=== PATIENT | female | born 1930 | race Caucasian/White ===

== ENCOUNTER 2018-09-08 04:25 | Emergency (ER) | payer BC ==
[2018-09-08 04:41] VITALS: BMI 20.5
--- NOTE | 2018-09-08 05:06 | PDOC ---
Attending Attestation - Resident Resident Name: FordJigar - ED Attending Attestation I have performed the following: I have examined & evaluated the patient, The case was reviewed & discussed with the resident, I agree w/resident's findings & plan - HPI HPI: 09/08/18 05:43 Pt comes with left scientology sensitivity and pain in her left eye. She had a tooth extraction in the left maxilla and right mandible. She has no fever and no chills. No headache at this time and no vision loss. - Physicial Exam PE: 09/08/18 05:50 Agree with resident exam - Medical Decision Making 09/08/18 05:[address] sinuses Pt will have labs/sed rate to r/o temp arteritis Pt is tachy and htn she will be treated with a dose of metoprolol 09/08/18 06:29 Patient Name: ARELY RASMUSSEN THIS IS A PRELIMINARY REPORT FROM [facility] DATE OF SERVICE: 2018-09-08 05:52:07 IMAGES: 140 EXAM: HEAD CT WITHOUT CONTRAST HISTORY: Headache COMPARISON: None. FINDINGS: Brain parenchyma is normal in attenuation with no mass or hematoma. There is no midline shift. López and white matter differentiation is normal. Ventricles are normal. Sulci and extra-axial CSF spaces are normal. Intracranial vascular structures are normal in attenuation. There is no calvarial fracture. Paranasal sinuses are normally aerated. IMPRESSION: Normal head 09/08/18 06:30 Sed rate and labs pending. CT head and sinuses normal. Vitals are improved; Pt will be signed out to the day team
--- NOTE | 2018-09-08 05:29 | PDOC ---
History of Present Illness - General Chief Complaint: Injury Stated Complaint: HEAD INJURY Time Seen by Provider: 09/08/18 05:06 History Source: Patient Exam Limitations: No Limitations - History of Present Illness Initial Comments: 09/08/18 05:50 88 yo F with hx of glaucoma in left eye (cataract surgery left eye 2011) presents to the emergency department with left eye pain that occurred at 11 pm last night. Per the patient, she stated yesterday morning she had an episode of sharp left eye pain "like I wanted to pass out" that lasted for approximately 30 seconds with radiation to the left anglican and temporal region of head. She had the same episode at 11 pm. Prior, during, and after these episodes, she denies visual loss. She states she hit her head while cleaning her car against the roof on the [place]. She denies other trauma since then. Per the patient, she had a dental extraction of her left upper molar tooth on Jul 30. Denies the following: fever, chills, nausea, vomiting, chest pain, SOB, abdominal pain, dysuria, hematuria, visual changes, lightheadedness, dizziness, FND, dysuria, hematuria, diarrhea, and hematochezia. Pmhx: Refer to above Shx: Right hip replacement Meds: lantoprost PMD: Dr. Resendiz Social: Denies tobacco, alcohol, and drug use. Past History - Past Medical History Allergies/Adverse Reactions: Allergies Allergy/AdvReac Type Severity Reaction Status Date / Time No Known Allergies Allergy Verified 09/08/18 04:40 Home Medications: Ambulatory Orders Loratadine/Pseudoephedrine Sul [Claritin-D 24 Hour Tablet] 1 tab PO DAILY Anemia: No Asthma: No Cancer: No Cardiac Disorders: No CVA: No COPD: No CHF: No Dementia: No Diabetes: No GI Disorders: No Disorders: No HTN: No Hypercholesterolemia: No Liver Disease: No Seizures: No Thyroid Disease: No - Surgical History Abdominal Surgery: No Appendectomy: No Cardiac Surgery: No Cholecystectomy: No Lung Surgery: No Neurologic Surgery: No Orthopedic Surgery: Yes (Right Hip Replacement 1994) - Suicide/Smoking/Psychosocial Hx Smoking History: Never smoked Have you smoked in the past 12 months: No Information on smoking cessation initiated: No Hx Alcohol Use: No Drug/Substance Use Hx: No Substance Use Type: None Hx Substance Use Treatment: No Review of Systems - Review of Systems Able to Perform ROS?: Yes Is the patient limited Pashto proficient: No Constitutional: No: Chills, Diaphoresis, Fever HEENTM: No: Eye Pain, Recent change in vision, Nose Pain, Throat Pain, Mouth Pain Respiratory: No: Cough, Shortness of Breath, SOB with Exertion, Hemoptysis Cardiac (ROS): No: Chest Pain, Lightheadedness, Palpitations, Syncope, Chest Tightness ABD/GI: No: Constipated, Diarrhea, Nausea, Poor Appetite, Rectal Bleeding, Vomiting, Tarry Stools : No: Burning, Dysuria, Flank Pain, Hematuria Musculoskeletal: No: Back Pain, Neck Pain Integumentary: No: Bruising, Lesions, Rash Neurological: No: Headache, Numbness, Tingling, Weakness, Ataxia Psychiatric: No: Stressors Endocrine: No: Unexplained Weight Gain Hematologic/Lymphatic: No: Anemia *Physical Exam - Vital Signs Last Vital Signs Temp Pulse Resp BP Pulse Ox 97.6 F 114 H 22 H 162/102 H 98 09/08/18 04:40 09/08/18 04:40 09/08/18 04:40 09/08/18 04:40 09/08/18 04:40 - Physical Exam General Appearance: Yes: Nourished, Appropriately Dressed HEENT: positive: EOMI, TRACY, Normal ENT Inspection, Normal Voice, Symmetrical, TMs Normal, Pharynx Normal. negative: Scleral Icterus (R), Scleral Icterus (L) , Muffled/Hoarse voice, Pharyngeal Erythema, Tonsillar Exudate, Tonsillar Erythema, Nasal Congestion Neck: positive: Trachea midline. negative: Lymphadenopathy (R), Lymphadenopathy (L) Respiratory/Chest: positive: Lungs Clear, Normal Breath Sounds. negative: Chest Tender, Respiratory Distress, Accessory Muscle Use, Crackles, Rales, Rhonchi, Stridor, Wheezing Cardiovascular: positive: Regular Rhythm, Regular Rate, S1, S2. negative: Systolic Murmur Gastrointestinal/Abdominal: positive: Normal Bowel Sounds. negative: Tender, Protuberent, Distended Lymphatic: negative: Adenopathy Musculoskeletal: positive: Normal Inspection. negative: CVA Tenderness, Vertebral Tenderness Extremity: positive: Normal Capillary Refill, Normal Inspection, Normal Range of Motion. negative: Tender Integumentary: positive: Normal Color, Dry, Warm Neurologic: positive: pcb designer II-XII NML intact, Fully Oriented, Alert, Normal Mood/ Affect, Normal Response, Motor Strength 5/5. negative: Facial Droop, Sensory Deficit ED Treatment Course - LABORATORY CBC & Chemistry Diagram: 09/08/18 06:16 09/08/18 06:16 Medical Decision Making - Medical Decision Making 09/08/18 09:05 88 yo F with hx of glaucoma in left eye (cataract surgery left eye 2011) presents to the emergency department with left eye pain that occurred at 11 pm last night. Initial vitals: Laboratory Tests 09/08/18 09/08/18 09/08/18 05:51 06:16 06:16 WBC 8.1 RBC 5.07 Hgb 14.5 Hct 43.3 MCV 85.3 MCH 28.5 MCHC 33.4 RDW 13.6 Plt Count 322 MPV 7.0 L Absolute Neuts (auto) 5.8 Neutrophils % 70.5 Lymphocytes % 19.3 Monocytes % 7.7 Eosinophils % 2.0 Basophils % 0.5 Nucleated RBC % 0 ESR 4 Sodium 136 Potassium 5.4 H Chloride 101 Carbon Dioxide 29 Anion Gap 6 L BUN 22 H Creatinine 0.6 Creat Clearance w eGFR > 60 Random Glucose 113 H Calcium 9.1 Total Bilirubin 0.5 AST 18 ALT 25 Alkaline Phosphatase 67 Total Protein 6.8 Albumin 3.8 ddx: trigeminal neuralgia, temporal arteritis, cluster headache, dental abscess , otitis media, sinusitis. cbc, cmp, esr, head ct/ct sinuses Patient was signed out to Dr. Marino *DC/Admit/Observation/Transfer Diagnosis at time of Disposition: Headache Qualifiers: Headache type: unspecified Headache chronicity pattern: unspecified pattern Intractability: not intractable Qualified Code(s): R51 - Headache - Discharge Dispostion Disposition: HOME Condition at time of disposition: Good - Referrals Referrals: Phillip Ruiz MD [Staff Physician] - Richmond Resendiz MD [Primary Care Provider] - Charley Perla MD [Staff Physician] - - Patient Instructions Printed Discharge Instructions: Cluster Headache, DI for Headache Additional Instructions: Your workup is unremarkable. Please follow up with your doctor. Call to make an appointment with a neurologist and eye doctor. If you have worsening pain, please return to the ER. - Post Discharge Activity
[2018-09-08] MEDS ORDERED: METOPROLOL TARTRATE 50 MG TABLET (FP) PO ONE (05:33)
[2018-09-08] MEDS ORDERED: METOPROLOL TARTRATE 50 MG TABLET (FP) ONE (05:37)
[2018-09-08 06:26] LABS: BASO % 0.5 % (0-2.0); HEMATOCRIT 43.3 % (32.4-45.2); HEMOGLOBIN 14.5 GM/dL (10.7-15.3); LYMPH % 19.3 % (8-40); MCH 28.5 pg (25.7-33.7); MCHC 33.4 g/dl (32.0-36.0); MEAN CELL VOLUME 85.3 fl (80-96); MONO % 7.7 % (3.8-10.2); NEUT % 70.5 % (42.8-82.8); PLATELET COUNT 322 K/MM3 (134-434); RBC 5.07 M/mm3 (3.60-5.2); RDW 13.6 % (11.6-15.6); WHITE BLOOD COUNT 8.1 K/mm3 (4.0-10.0)
[2018-09-08 06:46] LABS: ALBUMIN 3.8 g/dl (3.4-5.0); ALK PHOS 67 U/L (45-117); ANION GAP 6 MMOL/L (8-16); BILIRUBIN,TOTAL 0.5 mg/dL (0.2-1); BLOOD UREA NITROGEN 22 mg/dL (7-18); CALCIUM 9.1 mg/dL (8.5-10.1); CHLORIDE 101 mmol/L (98-107); CO2 29 mmol/L (21-32); CREATININE 0.6 mg/dL (0.55-1.3); GLUCOSE,RANDOM 113 mg/dL (74-106); POTASSIUM 5.4 mmol/L (3.5-5.1); SGOT/AST 18 U/L (15-37); SGPT/ALT 25 U/L (13-61); SODIUM 136 mmol/L (136-145); TOT PROT 6.8 g/dl (6.4-8.2)
[2018-09-08] MEDS ORDERED: SODIUM POLYSTYRENE SULFONATE 15 GM/60 ML BOTTLE ONE (07:20)
[2018-09-08] MEDS: SODIUM POLYSTYRENE SULFONATE 15 GM/60 ML BOTTLE PO ONE ×2 (07:21→07:48)
--- NOTE | 2018-09-08 07:27 | PDOC ---
*Physical Exam - Vital Signs Last Vital Signs Temp Pulse Resp BP Pulse Ox 97.6 F 114 H 22 H 162/102 H 98 09/08/18 04:40 09/08/18 04:40 09/08/18 04:40 09/08/18 04:40 09/08/18 04:40 ED Treatment Course - LABORATORY CBC & Chemistry Diagram: 09/08/18 06:16 09/08/18 06:16 - ADDITIONAL ORDERS Additional order review: Laboratory Results 09/08/18 06:16 Sodium 136 Potassium 5.4 H Chloride 101 Carbon Dioxide 29 Anion Gap 6 L BUN 22 H Creatinine 0.6 Creat Clearance w eGFR > 60 Random Glucose 113 H Calcium 9.1 Total Bilirubin 0.5 AST 18 ALT 25 Alkaline Phosphatase 67 Total Protein 6.8 Albumin 3.8 09/08/18 06:16 RBC 5.07 MCV 85.3 MCHC 33.4 RDW 13.6 MPV 7.0 L Neutrophils % 70.5 Lymphocytes % 19.3 Monocytes % 7.7 Eosinophils % 2.0 Basophils % 0.5 - Medications Given in the ED: ED Medications Discontinued Medications Generic Name Dose Route Start Last Admin Trade Name Freq PRN Reason Stop Dose Admin Metoprolol Tartrate 50 mg 09/08/18 05:33 09/08/18 05:40 Lopressor - PO 09/08/18 05:34 50 mg ONCE ONE Administration Sodium Polystyrene Sulfonate 15 gm 09/08/18 07:00 09/08/18 07:21 Kayexalate - PO 09/08/18 07:01 15 gm ONCE ONE Administration Medical Decision Making - Medical Decision Making 11/08/17 07:22 88 year old female with PMH left glaucoma, left eye cataract surgery presented to ED for left eye pain radiating to the left temporal area. She stated she had the eye pain a total of 2 times, each time lasting 30 seconds. She then had 1 episode in the ED, associated with increased lacrimation. She denied visual acuity changes. Initial Vital Signs Temp Pulse Resp BP Pulse Ox 97.6 F 114 H 22 H 162/102 H 98 09/08/18 04:40 09/08/18 04:40 09/08/18 04:40 09/08/18 04:40 09/08/18 04:40 Pt arrived tachycardic and hypertensive. Metoprolol 50 mg was given. CBC WBC 8.1 K/mm3 (4.0-10.0) 09/08/18 06:16 RBC 5.07 M/mm3 (3.60-5.2) 09/08/18 06:16 Hgb 14.5 GM/dL (10.7-15.3) 09/08/18 06:16 Hct 43.3 % (32.4-45.2) 09/08/18 06:16 MCV 85.3 fl (80-96) 09/08/18 06:16 MCH 28.5 pg (25.7-33.7) 09/08/18 06:16 MCHC 33.4 g/dl (32.0-36.0) 09/08/18 06:16 RDW 13.6 % (11.6-15.6) 09/08/18 06:16 Plt Count 322 K/MM3 (134-434) 09/08/18 06:16 MPV 7.0 fl (7.5-11.1) L 09/08/18 06:16 Absolute Neuts (auto) 5.8 K/mm3 (1.5-8.0) 09/08/18 06:16 Neutrophils % 70.5 % (42.8-82.8) 09/08/18 06:16 Lymphocytes % 19.3 % (8-40) 09/08/18 06:16 Monocytes % 7.7 % (3.8-10.2) 09/08/18 06:16 Eosinophils % 2.0 % (0-4.5) 09/08/18 06:16 Basophils % 0.5 % (0-2.0) 09/08/18 06:16 Nucleated RBC % 0 % (0-0) 09/08/18 06:16 No leukocytosis. No anemia. CMP Sodium 136 mmol/L (136-145) 09/08/18 06:16 Potassium 5.4 mmol/L (3.5-5.1) H 09/08/18 06:16 Chloride 101 mmol/L (98-107) 09/08/18 06:16 Carbon Dioxide 29 mmol/L (21-32) 09/08/18 06:16 Anion Gap 6 MMOL/L (8-16) L 09/08/18 06:16 BUN 22 mg/dL (7-18) H 09/08/18 06:16 Creatinine 0.6 mg/dL (0.55-1.3) 09/08/18 06:16 Creat Clearance w eGFR > 60 (>60) 09/08/18 06:16 Random Glucose 113 mg/dL (74-106) H 09/08/18 06:16 Calcium 9.1 mg/dL (8.5-10.1) 09/08/18 06:16 Total Bilirubin 0.5 mg/dL (0.2-1) 09/08/18 06:16 AST 18 U/L (15-37) 09/08/18 06:16 ALT 25 U/L (13-61) 09/08/18 06:16 Alkaline Phosphatase 67 U/L (45-117) 09/08/18 06:16 Total Protein 6.8 g/dl (6.4-8.2) 09/08/18 06:16 Albumin 3.8 g/dl (3.4-5.0) 09/08/18 06:16 Mildly elevated potassium. No KEVON. BUN/Cr>20, likely dehydration. CT head and CT sinus normal. Pending ESR for evaluation of possible temporal arteritis. 09/08/18 08:37 Vital Signs Temperature 98.5 F 09/08/18 07:35 Pulse Rate 85 09/08/18 07:35 Respiratory Rate 16 09/08/18 07:35 Blood Pressure 141/83 09/08/18 07:35 O2 Sat by Pulse Oximetry (%) 100 09/08/18 07:35 Afebrile. No tachycardia. No tachypnea. Mild hypertension. No hypoxia on room air. ESR normal. Pt will be discharged with PCP follow up. *DC/Admit/Observation/Transfer Diagnosis at time of Disposition: Headache Qualifiers: Headache type: unspecified Headache chronicity pattern: unspecified pattern Intractability: not intractable Qualified Code(s): R51 - Headache - Discharge Dispostion Disposition: HOME Condition at time of disposition: Good Decision to Admit order: No - Referrals Referrals: Phillip Ruiz MD [Staff Physician] - Richmond Resendiz MD [Primary Care Provider] - Charley Perla MD [Staff Physician] - - Patient Instructions Printed Discharge Instructions: Cluster Headache, DI for Headache Additional Instructions: Your workup is unremarkable. Please follow up with your doctor. Call to make an appointment with a neurologist and eye doctor. If you have worsening pain, please return to the ER. - Post Discharge Activity
[2018-09-08 07:47] VITALS: BP 141/83; PULSE 85; TEMP 98.5
--- NOTE | 2018-09-08 08:34 | PDOC ---
*Physical Exam - Vital Signs Last Vital Signs Temp Pulse Resp BP Pulse Ox 98.5 F 85 16 141/83 100 09/08/18 07:35 09/08/18 07:35 09/08/18 07:35 09/08/18 07:35 09/08/18 07:35 ED Treatment Course - LABORATORY CBC & Chemistry Diagram: 09/08/18 06:16 09/08/18 06:16 - ADDITIONAL ORDERS Additional order review: Laboratory Results 09/08/18 06:16 Sodium 136 Potassium 5.4 H Chloride 101 Carbon Dioxide 29 Anion Gap 6 L BUN 22 H Creatinine 0.6 Creat Clearance w eGFR > 60 Random Glucose 113 H Calcium 9.1 Total Bilirubin 0.5 AST 18 ALT 25 Alkaline Phosphatase 67 Total Protein 6.8 Albumin 3.8 09/08/18 06:16 RBC 5.07 MCV 85.3 MCHC 33.4 RDW 13.6 MPV 7.0 L Neutrophils % 70.5 Lymphocytes % 19.3 Monocytes % 7.7 Eosinophils % 2.0 Basophils % 0.5 - Medications Given in the ED: ED Medications Discontinued Medications Generic Name Dose Route Start Last Admin Trade Name Freq PRN Reason Stop Dose Admin Metoprolol Tartrate 50 mg 09/08/18 05:33 09/08/18 05:40 Lopressor - PO 09/08/18 05:34 50 mg ONCE ONE Administration Sodium Polystyrene Sulfonate 15 gm 09/08/18 07:00 09/08/18 07:48 Kayexalate - PO 09/08/18 07:01 Not Given ONCE ONE Medical Decision Making - Medical Decision Making 09/08/18 08:56 Sign-out received from outgoing Emergency Physician Dr. Junior Pt interviewed and examined Ancillary studies reviewed Case discussed in detail with oncoming Emergency Physician including history, physical exam and ancillary studies. Vital Signs Temp Pulse Resp BP Pulse Ox 98.5 F 85 16 141/83 100 09/08/18 07:35 09/08/18 07:35 09/08/18 07:35 09/08/18 07:35 09/08/18 07:35 I had evaluated the patient as well. The patient reported that she's been having occasionally intermittent left eye pressure pain that would resolve. States that occasionally this tearing but no associated headaches or temporal pain. No visual acuity changes. No numbness or weakness. Patient did have a history of cataract surgery left eye. Currently denies any symptoms to me. The patient has no tenderness to palpation on the left zoroastrian. No changes in visual acuity. ESR is negative. I have very low suspicion for temporal arteritis. This could be ocular migraine versus cluster headache versus tension headache. I do not suspect is a primary ophthalmologic all disorder. At this time, given the negative CT, patient feels comfortable follow-up with outpatient with an color tester and neurologist. Return precautions given. I discussed the physical exam findings, ancillary test results and final diagnoses with the patient. I answered all of the patient's questions. The patient was satisfied with the care received and felt comfortable with the discharge plan and treatment plan. The patient will call their primary care physician within 24 hours to arrange follow-up and will return to the Emergency Department with any new, persistant or worsening symptoms. *DC/Admit/Observation/Transfer Diagnosis at time of Disposition: Headache Qualifiers: Headache type: unspecified Headache chronicity pattern: unspecified pattern Intractability: not intractable Qualified Code(s): R51 - Headache - Discharge Dispostion Disposition: HOME Condition at time of disposition: Good Decision to Admit order: No - Referrals Referrals: Richmond Resendiz MD [Primary Care Provider] - Phillip Ruiz MD [Staff Physician] - Charley Perla MD [Staff Physician] - - Patient Instructions Printed Discharge Instructions: Cluster Headache, DI for Headache Additional Instructions: Your workup is unremarkable. Please follow up with your doctor. Call to make an appointment with a neurologist and eye doctor. If you have worsening pain, please return to the ER. - Post Discharge Activity
== END 2018-09-08 08:40 | disposition home or self-care (01) ==
LOC: JER 04:25
DX: R51 Headache (principal); Z96.641 Presence of right artificial hip joint
CPT/HCPCS: 36415; 70450-TC; 70486-TC; 80053; 85025; 85651; 99284-25